=== PATIENT | female | born 1925 | race Caucasian/White ===

== ENCOUNTER 2016-09-02 11:34 | Inpatient (IN) | payer MEDICARE, BC ==
[~2016-09-02] VITALS: Ht 149.9 cm; Wt 68.3 kg
--- NOTE | 2016-09-05 14:48 | NUR ---
DAY SHIFT SUMMARY: GROOMING SUPERVISED, SUPPLIES SET OUT; CLOTHING SET OUT FOR PT, SUPERVISION FOR UPPER DRESSING AND TOILETING; MIN ASSIST OF 1 FOR LOWER DRESSING, TRANSFERS TO/FROM BED/CHAIR/TOILET AND AMBULATION W/WALKER; WEARS DEPENDS FOR BLADDER MANAGEMENT AND MED GIVEN FOR BOWELS
--- NOTE | 2016-09-10 16:08 | NUR ---
DAY SHIFT SUMMARY: HAS MADE GREAT IMPROVEMENTS. IS INDEPENDENT IN EATING,GROOMING, UPPER DRESSING, BLADDER MANAGEMENT, ESPRESSION, SOCIAL AND INTERACTION. MOD INDEPENDENCE WITH DEVICE FOR SHOWERING, LOWER DRESSING, TOILETING, ALL TRANSFERS. NO BOWEL OR BLADDER ACCIDENTS. USES RX TO KEEP BOWELS SOFT/MOVING. USES GLASSES FOR COMPREHENSION AND WRITES NOTES TO SELF FOR MEMORY
[2016-09-11] MEDS ORDERED: ZESTRIL DPS10 MG PO (19:13)
[2016-09-11] MEDS ORDERED: LIPITOR DPS10 MG PO (19:14)
[2016-09-11] MEDS ORDERED: PRESERVISION A1 EACH PO (19:14)
[2016-09-11] MEDS ORDERED: THERA1 EACH PO (19:14)
[2016-09-11] MEDS ORDERED: ASA325 MG PO (19:14)
[2016-09-11] MEDS ORDERED: METAMUCIL SF P3.4 GM PO ×2 (19:14→19:27)
[2016-09-11] MEDS ORDERED: CALTRATE-600 W600 MG PO (19:14)
[2016-09-11] MEDS ORDERED: ASCORBIC ACID500 MG PO (19:15)
[2016-09-11] MEDS ORDERED: FEOSOL-DPS325 MG PO (19:15)
[2016-09-11] MEDS ORDERED: TYLENOL DPS325 MG PO ×2 (19:27)
[2016-09-11] MEDS ORDERED: ULTRAM DPS50 MG PO (19:28)
[2016-09-11] MEDS ORDERED: GLUCOSAMINE/CHO1 TAB PO (19:28)
--- NOTE | 2016-10-14 20:05 | DS ---
ADMIT: 09/02/2016 RM/LOC: [facility] MR#: [id number] [id number] BRISA [place] [address] General Discharge Summary SEX: F AGE: 89 : 1925 ADMISSION DATE: 09/02/2016 DISCHARGE DATE: 09/10/2016 DISCHARGE DIAGNOSES: Orthopedic disorder 08.61, status post unilateral knee replacement, M17.11 unilateral primary osteoarthritis, right knee, onset 08/30/2016, comorbid conditions per initial H and P. Other diagnosis per hospital course below. HOSPITAL COURSE: Please see my initial H and P for details prior to transfer to the IRU. Aspirin for DVT prophylaxis. Early ambulation. Mechanical means as well. Pain and bowel regimen adjusted. Lab was monitored regularly. IceBand was used often. Low air loss mattress for comfort. Tylenol, tramadol scheduled through the day for pain, p.r.n. Tylenol, tramadol for breakthrough pain. Dietitian followed to optimize nutrition. Pharmacy followed to optimize medication management. Protonix was switched to Pepcid to decrease risk of C. diff. Flexeril discontinued. OxyIR used second for pain. Discontinued Ultram after the patient had nightmares and confusion. Feosol and vitamin C given for iron deficiency with acute blood-loss anemia after right TKA. EdemaWear to bilateral lower extremities p.r.n. swelling. Discontinued many of her bowel meds and put her on Metamucil at home for routine. Discontinued OxyIR. B12, unnecessary, as it was normal. Tramadol dose adjusted down to 50 mg. Lipitor adjusted to reduce risk of nightmares and insomnia. Zestril adjusted to b.i.d. due to some nonspecific low blood pressure readings. The patient was medically stable at the time of discharge. Please see IRU interdisciplinary discharge summary details regarding progress in therapy. DISCHARGE DISPOSITION: Home, had all equipment for home, received transport from a friend. Her son will be coming to stay with her, 09/14/2016. DISCHARGE MEDICATIONS: Please see discharge med rec. Recommended Feosol and vitamin C for 1 month. Recommended Tylenol scheduled throughout the day for 1 month. Was given Ultram #20 with two refills. Pain was well controlled at the time of discharge. FOLLOWUP: Outpatient PT ordered. Dr. Chinchilla, September 13; Dr. Lynn, September 23. Kane Schroeder MD/ [email or web address] JOB #: [id number] CC:
== END 2016-09-10 12:35 | disposition home or self-care (01) | DRG 560 ==
LOC: 6IRU 11:34
PROVIDERS: ADMIT Physical Medicine & Rehabilitation
DX: Z47.1 Aftercare following joint replacement surgery (principal); D62 Acute posthemorrhagic anemia; R27.8 Other lack of coordination; I10 Essential (primary) hypertension; M62.81 Muscle weakness (generalized); R26.2 Difficulty in walking, not elsewhere classified; G89.18 Other acute postprocedural pain; K59.00 Constipation, unspecified; H91.93 Unspecified hearing loss, bilateral; E61.1 Iron deficiency; E55.9 Vitamin D deficiency, unspecified; E78.5 Hyperlipidemia, unspecified; R03.1 Nonspecific low blood-pressure reading; Z96.651 Presence of right artificial knee joint; Z87.891 Personal history of nicotine dependence